=== PATIENT | female | born 2000 | race Caucasian/White ===

== ENCOUNTER 2023-03-07 17:50 | Emergency (ER) | payer OTHER, SELFPAY ==
--- NOTE | ~2023-03-07 | XR_ITS ---
EXAM: XR knee LT min 4V DATE: 03/07/2023 18:30 HISTORY: KNEE PAIN, SWELLING, NKI . COMPARISON: None available. FINDINGS: Normal mineralization. No fracture or dislocation. No lytic or blastic lesion. Mild osteoa rthritic change in the medial compartment. No erosion or periosteal change. Soft tissues within sintia l limits. IMPRESSION: No acute osseous finding in the left knee. Reviewed, dictated and finalized at location [facility]. [facility]
[2023-03-07 17:59] VITALS: BP 150/80; PULSE 95; RESP 16; TEMP 37; O2SAT 99
--- NOTE | 2023-03-07 18:35 | ED.EXTPRO ---
HPI - Extremity Problem General Chief complaint: Extremity Problem,Nontraumatic Stated complaint: pain swelling in left leg Source: patient Mode of arrival: ambulatory Limitations: no limitations History of Present Illness HPI Narrative: Patient presents for evaluation of left knee pain. Symptom onset approximately 5 days ago. She cannot identify any precipitating cause or injury. Pain is constant, rated 4/10 severity, described as stabbing, worse with movement. She took 400 mg of ibuprofen earlier today. She is not certain whether it had much of an impact on her symptoms. No history of similar symptoms. No radicular component. No paresthesias. 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 Related Data Allergies Allergy/AdvReac Type Severity Reaction Status Date / Time No Known Allergies Allergy Unverified 03/07/23 18:38 Review of Systems Review of Systems: CONSTITUTIONAL: Denies fever, chills, or sweats. EYES: Denies visual changes, redness, or discharge. ENT: Denies rhinorrhea, congestion, sore throat, or otalgia. CARDIOVASCULAR: Denies chest pain, palpitations, or edema. RESPIRATORY: Denies cough or dyspnea. GASTROINTESTINAL: Denies abdominal pain, nausea, vomiting, or diarrhea. GENITOURINARY: Denies dysuria or hematuria. SKIN: Denies rash or itching. MUSCULOSKELETAL: Reports left knee pain. NEUROLOGIC: Denies headache, numbness, dizziness, or weakness. PSYCHIATRIC: Denies anxiety or depression. PMFSH Past Medical History Medical History (Updated 03/07/23 @ 18:58 by Rafael Veras, JOHN, ) No pertinent past medical history Surgical History Surgical History No pertinent past surgical history Family History Family History Mother Family history non-contributory Social History Social History (Updated 03/07/23 @ 18:38 by JOHN Reveles, ) Substance use: never Additional occupation/education comments: Works in [employer] Gender identity (if verbalized by the patient): Female Spiritual care concerns: No Exam Narrative: GENERAL: Well-appearing, well-nourished, and in no acute distress. HEAD: Normocephalic, atraumatic. EYES: PERRLA and EOMI. ENT: Nares clear, no rhinorrhea or epistaxis. Mucous membranes moist. Oropharynx without tonsillar hypertrophy exudate or other lesions. Bilateral TMs pearly gleason nonbulging NECK: Supple. No adenopathy or masses. No carotid bruits or JVD CHEST: Clear to auscultation. No respiratory distress. No wheezes rales or rhonchi HEART: Regular rate and rhythm. No murmur heard. Normal peripheral pulses. ABDOMEN: Soft, nontender, nondistended, normal active bowel sounds. EXTREMITIES: Normal range of motion of the left knee.. No edema. No tenderness in the left knee. There is mild crepitus present SKIN: Warm, dry, no rash. NEURO: No focal deficits. Alert and oriented x3. PSYCH: Normal mood and affect. Course Course Emergency Course: This is a 22-year-old female who presented for evaluation of left knee pain. X-ray negative for fracture. Recommend RICE therapy and diclofenac gel for pain. Provided with Graeme wrap. Follow up with primary provider. Go to the ER for worsening symptoms. Patient in agreement with plan of care. Level of Care: Express Care Visit Vital Signs Vital signs: Vital Signs Temperature 37.0 C 03/07/23 17:59 Pulse Rate 95 03/07/23 17:59 Respiratory Rate 16 03/07/23 17:59 Blood Pressure 150/80 H 03/07/23 17:59 Pulse Oximetry 99 03/07/23 17:59 Oxygen Delivery Room Air 03/07/23 17:59 Temperature 37.0 C 03/07/23 17:59 Pulse Rate 95 03/07/23 17:59 Respiratory Rate 16 03/07/23 17:59 Blood Pressure 150/80 H 03/07/23 17:59 Pulse Oximetry 99 03/07/23 17:59 Oxygen Delivery Room Air 03/07/23 17:
== END 2023-03-07 19:00 | disposition home or self-care (01) ==
PROVIDERS: Emergency Provider Nurse Practitioner; PCP Family Medicine
DX: M25.562 Pain in left knee (principal)
CPT/HCPCS: 73564; 99213; G0463

== ENCOUNTER 2024-06-21 12:48 | Emergency (ER) | payer OTHER, SELFPAY ==
[2024-06-21 12:57] VITALS: BP 132/41; PULSE 85; RESP 16; TEMP 36.8; O2SAT 98
--- NOTE | 2024-06-21 13:47 | ED.EYEPROB ---
HPI - Eye Problem General Chief complaint: Eye Problems Stated complaint: swelling in around right eye Time Seen by Provider: 06/21/24 13:47 Source: patient Mode of arrival: ambulatory Limitations: no limitations History of Present Illness HPI Narrative: 23 y/o female presented for c/o right eye redness, swelling and pain. Onset last night. Endorses pain when blinking. Denies vision changes or eye drainage, foreign body sensation, or eye injury. MD chief complaint: eye pain Related Data Allergies Allergy/AdvReac Type Severity Reaction Status Date / Time No Known Allergies Allergy Verified 06/21/24 12:58 Review of Systems Review of Systems: CONSTITUTIONAL: Denies body aches, fever, chills EYES:Endorses swelling, redness and pain to right eye; Denies visual changes FB sensation, photophobia ENT: Denies rhinorrhea, congestion, sore throat, or otalgia. CARDIOVASCULAR: Denies chest pain, palpitations RESPIRATORY: Denies cough or dyspnea. SKIN: Denies rash, itching, or wounds. MUSCULOSKELETAL: Denies back pain, joint pain, or myalgia. 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 Please see nursing chart for further information. There is no relevant family history pertinent to the presenting complaint Exam Narrative: GENERAL: Well-appearing HEAD: Normocephalic, atraumatic. EYES: right lower eye lid tenderness, mild swelling and redness c/w internal hordeolum. No conjunctival injection, PERRLA EOMI. Lid eversion shows no foreign body ENT: Mucous membranes pink and moist. No rhinorrhea. TMs normal bilaterally. Throat normal. Uvula midline. CHEST: Clear to auscultation. HEART: Regular rate and rhythm. SKIN: Warm, dry, no rash. Normal skin turgor. NEURO: No focal deficits. Alert and oriented x3 PSYCH: Normal affect. Course Course Emergency Course: Patient is aware of diagnosis, understands and agrees to treatment plan. Anticipatory guidance given. Patient agrees to follow-up as directed and is aware of reasons to seek care at the emergency department. Portions of this record may have been created with voice recognition software Level of Care: Express Care Visit Vital Signs Vital signs: Vital Signs Temperature 98.3 F 06/21/24 12:57 Pulse Rate 85 06/21/24 12:57 Respiratory Rate 16 06/21/24 12:57 Blood Pressure 132/41 L 06/21/24 12:57 Pulse Oximetry 98 06/21/24 12:57 Oxygen Delivery Room Air 06/21/24 12:57 Temperature 98.3 F 06/21/24 12:57 Pulse Rate 85 06/21/24 12:57 Respiratory Rate 16 06/21/24 12:57 Blood Pressure 132/41 L 06/21/24 12:57 Pulse Oximetry 98 06/21/24 12:57 Oxygen Delivery Room Air 06/21/24 12:57 MDM - Eye Problem MDM Narrative Medical decision making narrative: Discussed physical exam findings c/w stye. Advised supportive measures and signs/symptoms to go to the ER. Pt is appropriate for outpt treatment and f/u. Differential Diagnosis Differential diagnosis: Likely corneal abrasion, conjunctivitis, acute iritis and other Discharge Plan Discharge Clinical Impression: Internal hordeolum of right eye Patient Disposition: Home Condition: Stable Instructions: Antibiotic Zara Kirby (ED) Additional Instructions: Apply warm, moist compresses on the affected area frequently (for 5 to 10 minutes three to five times per day) in order to help with drainage. Massage and gentle wiping of the affected eyelid after the warm compress can also help with drainage. You can use baby shampoo to wash the eye area Avoid wearing eye makeup or contact lenses Tylenol and ibuprofen as needed for pain If no improvement you can start the antibiotic If the lesion does not improve within one to two weeks, please follow up with an lipstick molder for further management. [facility] [phone] [facility] [phone] [facility] [phone] [facility] [phone] Establish and Follow up with a primary care provider as needed in 1 week Go to the ER for worsening symptoms or concerns Patient Language: Persian Prescriptions: New cephalexin 500 mg capsule 500 mg PO Q8H 5 Days Qty: 15 0RF No Action diclofenac sodium [Voltaren Arthritis Pain] 1 % gel 4 g topical QID Qty: 100 0RF Rx Instructions: apply to left knee Follow-up/Referrals: PHYSICIAN,CARDIOVASCULAR SONOGRAPHER [Primary Care Provider] - Time of Disposition: 14:00
== END 2024-06-21 14:10 | disposition home or self-care (01) ==
PROVIDERS: Emergency Provider Nurse Practitioner Family
DX: H00.022 Hordeolum internum right lower eyelid (principal)
CPT/HCPCS: 99213; G0463

== ENCOUNTER 2025-01-19 08:25 | Emergency (ER) | payer OTHER, SELFPAY ==
[2025-01-19 08:30] VITALS: BP 137/75; PULSE 84; RESP 18; TEMP 36.3; O2SAT 99
--- NOTE | 2025-01-19 09:12 | ED.NAVMDI ---
HPI - Nausea/Vomiting/Diarrhea General Chief complaint: Nausea/Vomiting/Diarrhea Stated complaint: Diarrhea/Vomiting/Fever Time Seen by Provider: 01/19/25 08:40 Source: patient and RN notes reviewed Mode of arrival: ambulatory Limitations: no limitations History of Present Illness HPI Narrative: [age] year old female Presents Express Care complaining of fevers, nausea, vomiting, diarrhea for 2 days. Patient reports having abdominal cramping. Patient denies any abdominal pain,, body aches, chills. Patient last vomited last night she says Patient has been able to keep fluids down since vomiting. Patient reports brown watery diarrhea. Patient denies any blood or mucus in stools. Patient has not tried any [id number] for relief. Patient denies recent travel outside the country. Related Data Home Medications ?Medication ?Instructions ?Recorded ?Confirmed ?Last Taken ?Type metformin 500 mg tablet mg 01/19/25 Unknown History Allergies Allergy/AdvReac Type Severity Reaction Status Date / Time No Known Allergies Allergy Verified 01/19/25 08:28 Review of Systems Review of Systems: CONSTITUTIONAL: Denies chills, body aches, or sweats. Positive for fevers EYES: Denies visual changes, redness, or discharge. ENT: Denies rhinorrhea, congestion, sore throat, or otalgia. CARDIOVASCULAR: Denies chest pain, palpitations, or edema. RESPIRATORY: Denies cough or dyspnea. GASTROINTESTINAL: Denies abdominal pain, bloody stools, hematochezia. Positive for nausea, vomiting, or diarrhea. GENITOURINARY: Denies dysuria or hematuria. SKIN: Denies rash or itching. MUSCULOSKELETAL: Denies back pain, joint pain, or myalgia. NEUROLOGIC: Denies headache, numbness, or weakness. PSYCHIATRIC: Denies anxiety or depression. All other systems reviewed are negative, except as documented in HPI. 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 They are non ill-appearing, nontoxic appearing. Patient is morbidly obese. Physical exam is limited due to large body habitus. HEAD: normocephalic, atraumatic. EYES: Sclera clear/white. Vision is grossly intact. Conjunctiva normal bilaterally. Extraocular movements intact. EARS: External ears normal, Hearing grossly intact. NOSE: External nose normal THROAT: Mucous membranes moist NECK: Normal range of motion CARDIOVASCULAR: Regular rate and rhythm. Normal S1 and S2. No clicks, gallops, rubs, or murmurs. RESPIRATORY: Respiratory rate normal, respiratory effort nonlabored, no respiratory distress. Lung sounds clear to auscultation. Breath sounds equal bilaterally. No adventitious lung sounds. GASTROINTESTINAL: Abdomen is large, non-tender, nondistended. Bowel sounds are active. No hepato-splenomegaly, or palpable masses. No guarding or rigidity. No rebound tenderness. SKIN: warm, Dry, intact with no suspicious lesions or rash, good texture and turgor. NEURO: awake, alert, and oriented to person, place and time. There were no obvious focal neurologic abnormalities. EXTREMITIES: No joint tenderness, effusion, or edema noted. BACK: Nontender without deformity. No CVA tenderness. Course Course Level of Care: Express Care Visit Vital Signs Vital signs: Vital Signs Temperature 97.4 F L 01/19/25 08:30 Pulse Rate 84 01/19/25 08:30 Respiratory Rate 18 01/19/25 08:30 Blood Pressure 137/75 01/19/25 08:30 Pulse Oximetry 99 01/19/25 08:30 Oxygen Delivery Room Air 01/19/25 08:30 Temperature 97.4 F L 01/19/25 08:30 Pulse Rate 84 01/19/25 08:30 Respiratory Rate 18 01/19/25 08:30 Blood Pressure 137/75 01/19/25 08:30 Pulse Oximetry 99 01/19/25 08:30 Oxygen Delivery Room Air 12/11/25 08:30 MDM MDM Narrative Medical decision making narrative: No peritoneal findings on exam, no abdominal tenderness. Patient does not appear clinically dehydrated. Moist mucous membranes, no tachycardia, patient afebrile. Patient likely has a viral gastroenteritis. Will send her home with Zofran as needed for nausea and vomiting. Patient and will to hydrate with fluids after vomiting. Patient has not vomited since last night. Discussed physical exam findings. Advised supportive measures and signs/symptoms to go to the ER. Pt is appropriate for outpt treatment and f/u. Differential Diagnosis Differential Diagnosis: Gastroenteritis, viral infection, gastritis, colitis, small bowel obstruction, cholecystitis Discharge Plan Discharge Clinical Impression: Gastroenteritis Patient Disposition: Home Condition: Stable Instructions: Antibiotic Form, Gastroenteritis (ED) Additional Instructions: It is likely have a viral gastroenteritis. This is normally a self-limiting condition or resolve within 24-72 hours. It is recommended not to take anything for the diarrhea and allow the diarrhea to run its course. If the diarrhea persist and you feeling better, you may take Pepto-Bismol as needed to help control the diarrhea. Recommend hydration with plenty of fluids electrolyte supplementation such as Pedialyte. Follow-up PCP in 3-5 days. You may take Zofran as needed for nausea or vomiting. Your unable to keep anything down, you developed abdominal pain, worsening fevers, uncontrollable diarrhea, concerns of dehydration, or any other concerns please go to the ER immediately. Patient Language: Croatian Prescriptions: New ondansetron 4 mg tablet,disintegrating 4 mg PO Q8H PRN (Reason: nausea and vomiting) Qty: 12 0RF No Action metformin 500 mg tablet Follow-up/Referrals: Jean-Pierre,Kayleigh Decker APRN [Primary Care Provider, Unknown] Stand Alone Forms: Work/School Release IP Time of Disposition: 08:56
== END 2025-01-19 09:02 | disposition home or self-care (01) ==
PROVIDERS: PCP Nurse Practitioner
DX: K52.9 Noninfective gastroenteritis and colitis, unspecified (principal)
CPT/HCPCS: 99213; G0463